=== PATIENT | male | born 1970 | race Caucasian/White ===

== ENCOUNTER 2023-04-22 12:08 | Emergency (ER) | payer OTHER, SELFPAY ==
[2023-04-22] VITALS (13 sets, daily range): BP systolic 112–155; BP diastolic 60–98; PULSE 84–142; RESP 10–20; TEMP 36.8; O2SAT 94–100
--- NOTE | ~2023-04-22 | XR_ITS ---
EXAMINATION: XR chest 2V DATE: 04/22/2023 12:26 INDICATION: Chest pain TECHNIQUE: PA and lateral views of the chest are obtained. COMPARISON: None available FINDINGS: The lungs are free of acute opacities. No pleural effusion or pneumothorax. The cardiomedia stinal silhouette is normal. There is mild thoracic spondylosis. IMPRESSION: 1. No acute cardiopulmonary abnormality. Reviewed, dictated and finalized at location F.
--- NOTE | 2023-04-22 12:10 | ECG_ITS ---
Measurements Intervals [place] Rate: 104 P: 49 CA: 171 QRS: 130 QRSD: 153 T: 9 QT: 369 QTc: 487 Interpretive Statements SINUS TACHYCARDIA RIGHT AXIS DEVIATION POSSIBLE LEFT ATRIAL ENLARGEMENT RIGHT BUNDLE BRANCH BLOCK BASELINE ARTIFACT- II, AVR, AVF, V2 ABNORMAL ECG NO PREVIOUS ECG AVAILABLE FOR COMPARISON Electronically Signed On 04-22-2023 20:21:25 CDT by Sebastian Evans D.O.
[2023-04-22] MEDS: ASPIRIN 81 MG CHEWABLE TABLET 324 MG PO (12:26)
[2023-04-22 12:28] LABS: Basophils Absolute Auto 0.1 K/mm3 (0.0-0.1); Basophils Percent Auto 0.6 % (0.2-1.2); Eosinophils Absolute Auto 0.2 K/mm3 (0-0.3); Hematocrit 47.9 % (42.0-52.0); Hemoglobin 15.9 g/dL (14.0-18.0); Immature Granulocyte Absolute 0.03 K/mm3 (0.00-0.031); Immature Granulocyte Percent A 0.4 % (0-0.5); Lymphocytes Percent Auto 44.6 % (18.3-44.2); Mean Corpuscular HGB Conc 33.2 g/dl (32-36); Mean Corpuscular Hemoglobin 29.3 pg (26-34); Mean Corpuscular Volume 88.4 fl (80-100); Mean Platelet Volume 10.8 fl (7.4-10.4); Monocytes Absolute Auto 0.6 K/mm3 (0.1-0.6); Neutrophils Absolute Auto 3.5 K/mm3 (1.3-6.7); Neutrophils Percent Auto 44.4 % (45.5-73.1); Platelet Count Result 176 k/mm3 (150-375); Red Blood Count 5.42 M/mm3 (4.6-6.20); Red Cell Distribution Width 13.5 % (11.5-14.5); White Blood Count 7.8 K/mm3 (4.5-10.0)
[2023-04-22 12:38] LABS: Alanine Aminotransferase 56 U/L (6-50); Albumin Level 4.4 g/dL (3.5-5.1); Alkaline Phosphatase 52 U/L (38-126); Anion Gap 5 mmol/L (8-16); Aspartate Amino Transferase 41 U/L (17-59); Bilirubin,Total 1.1 mg/dL (0.2-1.3); Blood Urea Nitrogen 19 mg/dL (9-20); Calcium 9.7 mg/dL (8.4-10.2); Carbon Dioxide 32 mmol/L (22-30); Chloride 101 mmol/L (98-107); Estimated CRCL calculation 118 ml/min; Estimated Glomerular Filt Rate > 60; Glucose 191 mg/dL (65-110); Lipase 65 U/L (23-300); Potassium 4.6 mmol/L (3.4-5.0); Sodium 138 mmol/L (137-145)
[2023-04-22 12:40] LABS: Partial Thromboplastin Time 26.5 SECONDS (22.3-36.8); Prothrombin Time 13.3 Seconds (11.1-14.7)
[2023-04-22 12:49] LABS: Troponin I < 0.012 ng/mL (0.000-0.034)
[2023-04-22] MEDS: PANTOPRAZOLE SODIUM IV 40 MG VIAL IV PUSH (13:17)
[2023-04-22 14:00] LABS: D Dimer 0.42 ug/mL (<0.48)
--- NOTE | 2023-04-22 14:07 | ED.CHESTPAIN ---
HPI - Chest Pain General Chief Complaint: Chest Pain Stated Complaint: chest pain X2 days Time Seen by Provider: 04/22/23 13:07 History of Present Illness HPI narrative: Patient is a 52-year-old male who presents to the emergency department this afternoon complaining of chest pain for the past 2 days. Patient states that substernal and feels as a burning pain. He denies any history of acid reflux. He has not noticed any alleviating or aggravating factors. Patient denies any history of coronary artery disease, however, he admits to family history of CAD. Chest pain does not radiate and is non-positional. Patient admits to mild shortness of breath but denies any nausea, vomiting, abdominal pain, dysuria, hematuria, constipation, diarrhea, melena, hematochezia, fevers or chills. He also denies any headaches, dizziness, lightheadedness, blurry visions, dizziness, focal weakness, numbness and or tingling. There are no other modifying, alleviating, or precipitating factors at this time. Related Data Allergies Allergy/AdvReac Type Severity Reaction Status Date / Time No Known Allergies Allergy Verified 04/22/23 12:09 Review of Systems Review of Systems: All systems are reviewed and are negative unless stated otherwise in the HPI. [facility] Past Medical History Medical History (Updated 04/23/23 @ 00:00 by Marlen Alberto) Diabetes mellitus Hypertension Family History Family History (Updated 04/22/23 @ 14:15 by Abisai Clarke MD) Father Acute myocardial infarction Other Heart disease Social History Social History (Updated 04/22/23 @ 14:16 by Abisai Clarke MD) Smoking status: Never smoker Exam Narrative: General: Alert, awake, afebrile, in no acute distress. HEENT: PERRL, no rhinorrhea, no post nasal drip, oropharynx clear. Neck: Trachea midline, no JVD, no lymphadenopathy. Cardiovascular: Tachycardic with a regular rhythm, no murmurs, rubs or gallops, no peripheral edema. Respiratory: Clear to auscultation bilaterally, no tachypnea, no wheezing, no rhonchi, no rubs, no respiratory distress. Abdomen: Soft, nontender, nondistended, no rebound, no guarding, no peritoneal signs. Musculoskeletal: No joint swelling or deformity, normal muscle tone. Skin: No rashes or petechia, no signs of infection. Psychiatric: Alert and oriented, normal behavior and judgment for situation. Neurological: Alert and oriented to person, place, and time. Follows all commands. No focal deficits, speech is clear and fluent. Course Vital Signs Vital signs: Vital Signs Temperature 98.3 F 04/22/23 12:18 Pulse Rate 104 H 04/22/23 12:18 Respiratory Rate 20 04/22/23 12:18 Blood Pressure 155/98 H 04/22/23 12:18 Pulse Oximetry 100 04/22/23 12:18 Oxygen Delivery Room Air 04/22/23 12:18 Temperature 98.3 F 04/22/23 12:18 Pulse Rate 85 04/22/23 14:32 Respiratory Rate 13 04/22/23 14:32 Blood Pressure 112/60 04/22/23 14:32 Pulse Oximetry 96 04/22/23 14:32 Oxygen Delivery Room Air 04/22/23 12:36 MDM - Chest Pain MDM Narrative Medical decision making narrative: The patient was evaluated by myself in the emergency department. History is obtained from patient who is an independent historian and physical exam was performed. External medical records were reviewed at this time. IV was established and pertinent tests were ordered. Patient was administered 40 mg of IV Protonix. EKG was obtained which revealed sinus tachycardia at a rate of 104 bpm with a right bundle branch block. No ST changes, T wave inversions or evidence of acute ischemia. EKG was independently interpreted by me and is currently pending official cardiology read. Laboratory results obtained including a troponin and a D-dimer revealing no acute process. Imaging studies obtained included 2 view chest x-ray which was independently interpreted by me revealing no acute process, which is pending final radiology inte
== END 2023-04-22 15:15 | disposition home or self-care (01) ==
PROVIDERS: Emergency Medicine; Emergency Provider Emergency Medicine; PCP Family Medicine
DX: K21.9 Gastro-esophageal reflux disease without esophagitis (principal); R07.2 Precordial pain; E11.9 Type 2 diabetes mellitus without complications; I10 Essential (primary) hypertension; Z79.4 Long term (current) use of insulin
CPT/HCPCS: 36415; 71046; 80053; 83690; 84484; 85025; 85380; 85610; 85730; 93005; 96374; 99284; A9270; C9113